=== PATIENT | female | born 1970 | race Caucasian/White ===

== ENCOUNTER 2023-02-15 05:25 | Emergency (ER) | payer OTHER ==
[~2023-02-15] VITALS: Ht 167.6 cm; Wt 66.7 kg
[2023-02-15 05:31] VITALS: BP_SYST 135; PULSE 67; RESP 22; TEMP 98; O2SAT 99
[2023-02-15] MEDS ORDERED: methylPREDNISolone SOD SUCC/PF 62.5 MG/ML VIAL IVP ONE (06:00)
[2023-02-15] MEDS ORDERED: LIDOCAINE 1% 10 MG/ML, 20 ML MDV INJ ONE (06:00)
[2023-02-15] MEDS ORDERED: NAPR-690 PO (06:28)
[2023-02-15 06:33] VITALS: BP_SYST 135; PULSE 67; RESP 22; TEMP 98; O2SAT 99
== END 2023-02-15 06:34 | disposition home or self-care (01) ==
LOC: SED 05:25
DX: M75.31 Calcific tendinitis of right shoulder (principal); Z88.0 Allergy status to penicillin; Z88.1 Allergy status to other antibiotic agents; Z79.899 Other long term (current) drug therapy
CPT/HCPCS: 64450; 99284; 93005; 73030; J2001; J2930